=== PATIENT | female | born 1945 | race Caucasian/White ===

== ENCOUNTER 2017-02-08 15:37 | Emergency (ER) | payer MEDICARE, OTHER ==
[~2017-02-08] VITALS: Ht 165.1 cm; Wt 94.3 kg
[~2017-02-08 15:37] MED LIST: CITA40TA6 PO; FLUT16SP EA NOSTRIL; HYDR-4246 PO; LISI-621 PO; MELO-267 PO; ROPI2TAB6 PO; SULF1TAB42 PO; TRIA1TAB3 PO; VITA100049 PO
--- OUTSIDE RECORDS SUMMARY | 2017-02-08 15:43 | XMS REPORT ---
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 Active Assessment Encounter for screening for other disorder Z13.89 Active Assessment Encounter for screening for lipoid disorders Z13.220 Active Medications Medication Code System Code Instructions Start Date End Date Status Dosage Carvedilol [facility] [address]-59 25 MG Orally Twice a day Oct 20, 2015 1 tablet with food Citalopram Hydrobromide [facility] [address]-75 40 MG Orally Once a day Dec 01, 2015 1 tablet Ropinirole HCl [facility] [address]-81 2 MG Orally Once a day Oct 20, 2015 1 tablet 1 to 3 hours before bedtime Triamterene-HCTZ [facility] [address]-44 37.5-25 Orally Once a day TAKE ONE TABLET BY MOUTH DAILY Zetia [facility] [address]-11 10 MG Orally Once a day Nov 03, 2015 1 tablet Oxygen [facility] 0 Titrate inhaled overnight PRN Oct 20, 2015 as directed Fluticasone Propionate [facility] [address]-18 50 MCG/ACT Nasally Once a day Oct 20, 2015 1 spray in each nostril Lisinopril [facility] [address]-07 20 MG Orally Once a day Oct 20, 2015 1/ 2 tablet Procedures Procedure Coding System Code Date TSH CPT-4 23091 Jul 11, 2016 Results Name Result Date Reference Range Unit Abnormality Flag TSH ----TSH 3.34 [id number] 0.35-4.94 uIU/mL Summary Purpose eClinicalWorks Submission
--- OUTSIDE RECORDS SUMMARY | 2017-02-08 15:43 | XMS REPORT ---
Author Author Seble Johnson Organization [employer] Address Unknown Phone Unavailable Care Team Providers Care Cylinder Die Machine Operator Name Role Phone Seble Johnson CP Unavailable Allergies No Known Allergies Problems Problem Type Condition Code Onset Dates Condition Status Problem Unspecified essential hypertension 401.9 Active Medications Medication Code System Code Instructions Start Date End Date Status Dosage Zetia [facility] [address]-35 10 MG Orally Once a day Nov 03, 2015 1 tablet Results No Known Results Summary Purpose eClinicalWorks Submission
--- OUTSIDE RECORDS SUMMARY | 2017-02-08 15:43 | XMS REPORT ---
Author Author Seble Johnson [facility] Address [address] [place] [address] Care Team Providers Care Lasting Floorworker Name Role Phone Seble Johnson Unavailable [phone] PROBLEMS Type Condition ICD9-CM Code ZZW25-PW Code Onset Dates Condition Status SNOMED Code Problem Chronic obstructive pulmonary disease, unspecified COPD type J44.9 Active 98118242 Problem Other specified disorders of bone density and structure, unspecified site M85.80 Active Problem Hypoxemia R09.02 Active 105782533 Problem Unspecified essential hypertension 401.9 Active 50574107 Problem Nicotine dependence, cigarettes, uncomplicated F17.210 Active [id number] ALLERGIES Unknown Allergies SOCIAL HISTORY No smoking Hx information available PLAN OF CARE VITAL SIGNS MEDICATIONS Unknown Medications RESULTS No Results PROCEDURES No Known procedures IMMUNIZATIONS No Known Immunizations
--- OUTSIDE RECORDS SUMMARY | 2017-02-08 15:43 | XMS REPORT | Continuity of Care Document ---
Author Author [facility] Organization [facility] Address Unknown Phone Unavailable Support Name Relationship Address Phone GRANT WILKINS MD Caregiver [address] [place] [address] Unavailable TONNY GARCIA APRN Caregiver [address] [place] [address] Unavailable [place] Next Of Kin [address] [id number] Insurance Providers Guarantor Sabrina Durbin Address [address] [place] [id number] C Email DENIED/NO TO PT PORTAL Payer Medicare Policy Number [id number] Subscriber's Name Sabrina Durbin Relationship 18 Self Effective Date 10 Payer Other A Insurance Policy Number [id number] Subscriber's Name Sabrina Durbin Relationship 18 Self Group Number [id number] Problems Past Problems Medical Problem Onset Date Splinter of left foot with infection Unknown Medications Current Home Medications Medication Dose Units Route Directions Days Qty Instructions Start Date Amoxicillin/Potassium Clav (Augmentin 500-125 Tablet) 1 Each Tablet 1 Tab Oral Twice Daily With Meals 10 Tablet 05/18/16 Carvedilol 25 Mg Tablet 25 Mg Oral Daily 05/18/16 Citalopram Hydrobromide (Citalopram Hbr) 40 Mg Tablet 20 Mg Oral Daily 05/18/16 Fluticasone Propionate (Fluticasone Prop 50 Mcg/Actuation Nasal Tabiona) 120 Tabiona/16 G Tabiona 1 Tabiona Each Nostril Daily as needed for Prn Orders 05/18/16 Lisinopril 20 Mg Tablet 20 Mg Oral Daily 05/18/16 Meloxicam 15 Mg Tablet 15 Mg Oral Daily 05/18/16 Ropinirole Hcl 2 Mg Tablet 2 Mg Oral Daily 05/18/16 Rosuvastatin Calcium (Crestor) 5 Mg Tablet 5 Mg Oral Daily Tramadol Hcl 50 Mg Tablet 1-2 Tab Oral Q6h/0300,0900,1500,2100 as needed for Pain 20 Tablet 05/18/16 Triamterene/Hydrochlorothiazid (Triamterene-Hctz 37.5-25 Mg Tb) 1 Each Tablet 1 Tab Oral Daily 05/18/16 Vitamin E Mixed (Vitamin E) 1,000 Unit Capsule 1,000 Unit Oral Daily 05/18/16 Social History Social History Problem Response Recorded Date/Time Onset Date Status Hx Substance Use No 05/18/2016 10:50am Not Applicable Not Applicable Hx Alcohol Use No 05/18/2016 10:50am Not Applicable Not Applicable Has the pt used tobacco in the last 12 months Yes 05/19/2016 11:53am Not Applicable Not Applicable Tobacco Usage none 05/18/2016 11:30am Not Applicable Not Applicable Query Response Start Date Stop Date Smoking Status Current every day smoker Hospital Discharge Instructions No hospital discharge instructions. Plan of Care Prescriptions See Medication Section Functional Status No functional status results. Allergies, Adverse Reactions, Alerts No known allergies. Immunizations Immunization Event Date Type Not Given Reason Dose Number Lot Number Construction Project Assistant VIS Given Tdap 05/18/16 Administered 1 [id number] [facility] 01/13/15 Query Response on File Recorded Date/Time Hx Influenza Vaccination Y fall 201505/19/16 11:53am Hx Pneumococcal Vaccination No 05/19/16 11:53am Hx Influenza Vaccination Y fall 201505/19/16 11:53am Influenza Vaccine Hx CURRENT PER PT 05/18/16 10:50am Tdap Vaccine Hx 05/18/16 05/18/16 2:53pm Vital Signs Acute Vital Signs Vital Response Date/Time Temperature (Fahrenheit) 97.4 deg F (96.8 - 99.1) 05/19/2016 11:56am Temperature (Calculated Celsius) 36.42449 degrees C (36.0 - 37.3) 05/19/2016 11:56am Pulse Rate (adult) 72 bpm (60 - 100) 05/19/2016 11:56am Respiratory Rate 18 breaths/min (10 - 20) 05/19/2016 11:56am O2 Sat by Pulse Oximetry 93 % (90 - 100) 05/19/2016 11:56am Oxygen Delivery Method Room Air 05/19/2016 11:56am Blood Pressure 133/71 mm Hg 05/19/2016 11:56am Blood Pressure Source Automatic Cuff 05/19/2016 11:56am Blood Pressure 133/71 mm Hg 05/19/2016 11:56am Blood Pressure Source Automatic Cuff 05/19/2016 11:56am Height (Feet) 5 feet 05/19/2016 11:53am Height (Inches) 5.00 inches 05/19/2016 11:53am Weight (Kilograms) 85.500 kg 05/19/2016 11:53am Body Mass Index (BMI) 31.4 05/19/2016 11:53am Results Laboratory Results Test Name Result Units Flags Reference Collection Date/Time Result Date/ Time Comments White Blood Count 14.3 T/MM3 H 4.5-11.0 05/19/2016 11:49am 05/19/2016 12 :14pm Red Blood Count 4.76 M/MM3 4.00-5.20 05/19/2016 11:4905/19/2016 12: 14pm Hemoglobin 13.6 GM/DL 12-16 05/19/2016 11:49am 05/19/2016 12:14pm Hematocrit 41.6 % 36-46 05/19/2016 11:4905/19/2016 12:14pm Mean Corpuscular Volume 87.4 UM3 80-100 05/19/2016 11:4905/19/2016 12:14pm Mean Corpuscular Hemoglobin 28.6 UUG 26-34 05/19/2016 11:492015 12:14pm Mean Corpuscular Hemoglobin Concent 32.7 GM/DL 31-37 05/19/2016 11:4905/19/2016 12:14pm RDW Standard Deviation 43.5 FL 36.9-50.2 05/19/2016 11:4905/19/2016 12:14pm Platelet Count 234 T/MM3 130-400 05/19/2016 11:4905/19/2016 12:14pm Mean Platelet Volume 11.3 UM3 9.4-12.4 05/19/2016 11:4905/19/2016 12 :14pm Neutrophils % (Manual) 90.0 % H 33-66 05/19/2016 11:49am 05/19/2016 12: 20pm Band Neutrophils % 4.0 % 0-6 05/19/2016 11:4905/19/2016 12:20pm Lymphocytes % (Manual) 6.0 % L 23-45 05/19/2016 11:49am 05/19/2016 12: 20pm Band Neutrophils # 0.6 T/MM3 05/19/2016 11:4905/19/2016 12:20pm Absolute Neutrophils (Manual) 12.9 T/MM3 H 1.8-7.7 05/19/2016 11:49am 12:20pm Lymphocytes # (Manual) 0.9 T/MM3 L 1-4.8 05/19/2016 11:4905/19/2016 12:20pm Red Cell Morphology Comment NORMAL 05/19/2016 11:4905/19/2016 12 :30pm Icterus Index < 2 0-7 05/19/2016 11:4905/19/2016 12:24pm Chemistry Specimen Hemolysis 20 0-25 05/19/2016 11:4905/19/2016 12 :24pm 0-25: Specimen Exhibited No Hemolysis. Turbidity < 20 0-20 05/19/2016 11:4905/19/2016 12:24pm Sodium Level 136 MEQ/L 134-144 05/19/2016 11:4905/19/2016 12:24pm Potassium Level 3.5 MEQ/L L 3.6-5 05/19/2016 11:4905/19/2016 12:24pm Chloride Level 102 MEQ/L 98-107 05/19/2016 11:4905/19/2016 12:24pm Carbon Dioxide Level 23 MEQ/L 22-30 05/19/2016 11:4905/19/2016 12: 24pm Anion Gap 11 MEQ/L 5-15 05/19/2016 11:4905/19/2016 12:24pm Blood Urea Nitrogen 23.0 MG/DL H 7-17 05/19/2016 11:4905/19/2016 12: 24pm Creatinine 0.9 MG/DL 0.7-1.2 05/19/2016 11:4905/19/2016 12:24pm BUN/Creatinine Ratio 26 RATIO 6-26 05/19/2016 11:4905/19/2016 12: 24pm Glomerular Filtration Rate Calc 62 05/19/2016 11:4905/19/2016 12 :24pm Glucose Level 133 MG/DL H 65-110 05/19/2016 11:49am 05/19/2016 12:24pm Calculated Osmolality 268 MOSM/KG 261-280 05/19/2016 11:49am 2015 12:24pm Calcium Level 9.4 MG/DL 8.4-10.2 05/19/2016 11:49am 05/19/2016 12:24pm Total Bilirubin 1.00 MG/DL 0.20-1.30 05/19/2016 11:49am 05/19/2016 12: 24pm Alkaline Phosphatase 101 U/L 38-126 05/19/2016 11:49am 05/19/2016 12: 24pm Total Protein 7.4 G/DL 6.3-8.2 05/19/2016 11:49am 05/19/2016 12:24pm Albumin 3.9 G/DL 3.5-5.0 05/19/2016 11:49am 05/19/2016 12:24pm Globulin 3.5 G/DL 2.4-3.6 05/19/2016 11:49am 05/19/2016 12:24pm Albumin/Globulin Ratio 1.1 RATIO 1.1-2.2 05/19/2016 11:49am 05/19/2016 12:24pm Aspartate Amino Transf (AST/SGOT) 23 U/L 14-36 05/19/2016 11:49am 05/19 12:24pm Alanine Aminotransferase (ALT/SGPT) 19 U/L 9-52 05/19/2016 11:49am 12:24pm Microbiology Results Procedure Source Organism/Result Collection Date/Time Result Date/Time Result Status Blood Culture Peripheral/Iv Start CULTURE INITIATED - RESULTS PENDING 05/19 11:49am 05/19/2016 12:11pm Preliminary Procedures Procedure Status Date Provider(s) X-RAY EXAM OF FOOT Completed 05/18/16 US XTR NON-VASC LMTD Completed 05/18/16 IMMUNIZATION ADMIN Completed 05/18/16 TDAP VACCINE 7 YRS/> IM Completed 05/18/16 EMERGENCY DEPT VISIT Completed 05/18/16 Encounters Encounter Location Arrival/Admit Date Discharge/Depart Date Attending Provider Discharged Recurring [facility] 05/19/16 10:33am 05/19/16 5:52pm GRANT WILKINS MD Departed Emergency Room [facility] 05/18/16 10:46am 05/18/16 3: 10pm CHARLES MARR MD
--- OUTSIDE RECORDS SUMMARY | 2017-02-08 15:43 | XMS REPORT ---
Author Seble Ly [facility] eClinicalWorks Address Unknown Phone Unavailable Care Team Providers Care Oracle Application Architect Name Role Phone Seble Johnson CP Unavailable Allergies, Adverse Reactions, Alerts Substance Reaction Event Type Statins severe leg cramps Drug Allergy Problems Problem Type Condition Code Onset Dates Condition Status Assessment Hypoxemia R09.02 Active Assessment Nicotine dependence, cigarettes, uncomplicated F17.210 Active Problem Unspecified essential hypertension 401.9 Active Assessment Encounter for screening for other disorder Z13.89 Active Assessment Encounter for screening for lipoid disorders Z13.220 Active Assessment general medical exam Z00.00 Active Assessment Encounter for screening for malignant neoplasm of colon Z12.11 Active Medications Medication Code System Code Instructions Start Date End Date Status Dosage Fluticasone Propionate [facility] [address]-89 50 MCG/ACT Nasally Once a day Oct 20, 2015 1 spray in each nostril Lisinopril [facility] [address]-74 20 MG Orally Once a day Oct 20, 2015 1 tablet Triamterene-HCTZ [facility] [address]-87 37.5-25 MG Orally Once a day Sep 18, 2015 1 tablet in the morning Oxygen [facility] 0 Titrate inhaled overnight PRN Oct 20, 2015 as directed Ropinirole HCl [facility] [address]-36 2 MG Orally Once a day Oct 20, 2015 1 tablet 1 to 3 hours before bedtime Citalopram Hydrobromide [facility] [address]-74 40 MG Orally Once a day Oct 20, 2015 0.5 tablet Carvedilol [facility] [address]-59 25 MG Orally Twice a day Oct 20, 2015 1 tablet with food Meloxicam [facility] [address]-58 15 MG Orally Once a day Oct 20, 2015 April 17, 2016 1 tablet Procedures Procedure Coding System Code Date Preventive Care Est Pt. Age 65 and over CPT-4 28659 Oct 20, 2015 Vital Signs Date/Time: Oct 20, 2015 Height 66 in Weight 196.7 lbs Temperature 97.3 F Blood Pressure Diastolic 76 mm Hg Blood Pressure Systolic 118 mm Hg Cardiac Monitoring Heart Rate 60 /min BMI 31.74 Index Oximetry 90 % Respiratory Rate 20 /min Results No Known Results Summary Purpose eClinicalWorks Submission
--- OUTSIDE RECORDS SUMMARY | 2017-02-08 15:44 | XMS REPORT ---
Author Author Seble Johnson Organization [employer] Address Unknown Phone Unavailable Care Team Providers Care Sorting Cows Worker Name Role Phone Seble Johnson CP Unavailable Allergies No Known Allergies Problems Problem Type Condition Code Onset Dates Condition Status Assessment Encounter for screening for other disorder Z13.89 Active Problem Unspecified essential hypertension 401.9 Active Medications No Known Medications Results No Known Results Summary Purpose eClinicalWorks Submission
--- OUTSIDE RECORDS SUMMARY | 2017-02-08 15:44 | XMS REPORT ---
Author Danii Ordoñez [facility] eClinicalWorks Address Unknown Phone Unavailable Care Team Providers Care Sales Representative Name Role Phone Danii Zaman CP Unavailable Allergies No Known Allergies Problems Problem Type Condition Code Onset Dates Condition Status Problem Unspecified essential hypertension 401.9 Active Medications Medication Code System Code Instructions Start Date End Date Status Dosage Triamterene-HCTZ [facility] [address]-37 37.5-25 MG Orally Once a day Sep 18, 2015 1 tablet in the morning Results No Known Results Summary Purpose eClinicalWorks Submission
--- OUTSIDE RECORDS SUMMARY | 2017-02-08 15:44 | XMS REPORT | Continuity of Care Document ---
Author Author [facility] Organization [facility] Address Unknown Phone Unavailable Support Name Relationship Address Phone GRANT WILKINS MD Caregiver [address] [place] [address] Unavailable GRANT WILKINS MD Caregiver [address] [place] [address] Unavailable TONNY GARCIA APRN Caregiver [address] [place] [address] Unavailable LAWLERCLEM Next Of Kin [address] [place], [place] [id number] Insurance Providers Guarantor DurbinSabrina Address [address] [place] [address] C Email DENIED/NO TO PT PORTAL Payer Medicare Policy Number [id number] Subscriber's Name Sabrina Durbin Relationship 18 Self Effective Date 10 Payer Other A Insurance Policy Number [id number] Subscriber's Name Sabrina Durbin Relationship 18 Self Group Number PLANF Advance Directives Directive Response Recorded Date/Time Ordered Resuscitation Status Full Code 05/24/16 9:50am Resuscitation Documents on File No 05/24/16 9:56am DPOA for Healthcare Only No 05/24/16 9:56am Problems Active Problems Medical Problem Onset Date Status COPD (chronic obstructive pulmonary disease) Unknown Chronic Cellulitis and abscess of foot Unknown Acute Depression Unknown Chronic Hx of breast cancer Unknown Hypercholesterolemia Unknown Chronic Hypertension Unknown Chronic Tobacco dependence Unknown Chronic Past Problems Medical Problem Onset Date Splinter of left foot with infection Unknown Medications Current Home Medications Medication Dose Units Route Directions Days Qty Instructions Start Date Citalopram Hydrobromide (Citalopram Hbr) 40 Mg Tablet 20 Mg Oral Daily 05/18/16 Fluticasone Propionate (Fluticasone Prop 50 Mcg/Actuation Nasal [place]) 120 [place]/16 G [place] 1 [place] Each Nostril Daily as needed for Prn Orders 05/18/16 Hydrocodone/Acetaminophen (Cornish 5-325 Tablet) 5-325 Tablet 1-2 Tab Oral Every 6 Hours as needed for Pain 40 Tablet 05/27/16 Lisinopril 20 Mg Tablet 20 Mg Oral Daily 05/18/16 Meloxicam 15 Mg Tablet 15 Mg Oral Daily 05/18/16 Ropinirole Hcl 2 Mg Tablet 2 Mg Oral Daily 05/18/16 Sulfamethoxazole/Trimethoprim (Bactrim Ds Tablet) 1 Each Tablet 1 Tab Oral Twice A Day 14 Days 28 Tablet Take 1 tablet, by mouth, 2 times a day. Triamterene/Hydrochlorothiazid (Triamterene-Hctz 37.5-25 Mg Tb) 1 Each Tablet 1 Tab Oral Daily 05/18/16 Vitamin E Mixed (Vitamin E) 1,000 Unit Capsule 1,000 Unit Oral Daily 05/18/16 Past Home Medications Medication Directions Ordered Status Amoxicillin/Potassium Clav (Augmentin 500-125 Tablet) 1 Each Tablet, 1 Tab Oral Twice Daily With Meals 05/18/16 Discontinued Carvedilol 25 Mg Tablet, 25 Mg Oral Daily 05/18/16 Discontinued Tramadol Hcl 50 Mg Tablet, 1-2 Tab Oral Q6h/0300,0900,1500,2100 as needed for Pain 05/18/16 Discontinued Social History Social History Problem Response Recorded Date/Time Onset Date Status Hx Substance Use No 05/18/2016 10:50am Not Applicable Not Applicable Hx Alcohol Use No 05/25/2016 12:07pm Not Applicable Not Applicable Has the pt used tobacco in the last 12 months Yes 05/24/2016 9:58am Not Applicable Not Applicable Tobacco Usage smoke 05/24/2016 5:59pm Not Applicable Not Applicable Query Response Start Date Stop Date Smoking Status Current every day smoker Hospital Discharge Instructions No hospital discharge instructions. Plan of Care Discharge Date 05/27/16 2:20pm Disposition 01 DISCHARGED HOME, SELF-CARE Instructions/Education Provided Chronic Obstructive Pulmonary Disease Incision and Drainage of a Skin Abscess Prescriptions See Medication Section Additional Instructions/Education DRESSING CHANGES EVERY DAY WITH 1/4" PACKING TAPE AND KERLIX. WEIGHT BEARING TOLERATED ON YOUR L HEEL. Functional Status Query Response Date Recorded Mobility Status Ambulatory May 27, 2016 9:45am Assistive Devices None May 27, 2016 9:45am Activity Limitations None May 27, 2016 9:45am Feeding Ability Independent May 27, 2016 9:45am Toileting Ability Independent May 27, 2016 9:45am Grooming Ability Independent May 27, 2016 9:45am Dressing Ability Independent May 27, 2016 9:45am Driving Ability Independent May 27, 2016 9:45am Housework Ability Independent May 27, 2016 9:45am Meal Preparation Ability Independent May 27, 2016 9:45am Stair Climbing Ability Independent May 27, 2016 9:45am Ability to complete ADL's impeded by No change May 27, 2016 9:45am Cognitive/Perceptual Impairments Impaired vision May 27, 2016 9:45am Visual Assistive Devices Glasses With patient May 27, 2016 9:45am Preferred Method of Learning Listening May 27, 2016 9:45am Allergies, Adverse Reactions, Alerts No known allergies. Immunizations Immunization Event Date Type Not Given Reason Dose Number Lot Number Neonatal Social Worker VIS Given Tdap 05/18/16 Administered 1 [id number] [employer] 01/13/15 Query Response on File Recorded Date/Time Hx Influenza Vaccination Y fall 201505/24/16 9:58am Hx Pneumococcal Vaccination No 05/24/16 9:58am Hx Influenza Vaccination Y fall 201505/24/16 9:58am Influenza Vaccine Hx CURRENT PER PT 05/18/16 10:50am Tdap Vaccine Hx 05/18/16 05/18/16 2:53pm Vital Signs Acute Vital Signs Vital Response Date/Time Temperature (Fahrenheit) 96.1 deg F (96.8 - 99.1) 05/27/2016 12:28pm Temperature (Calculated Celsius) 35.31782 degrees C (36.0 - 37.3) 05/27/2016 12:28pm Temperature Source Axillary 05/25/2016 5:43pm Pulse Rate (adult) 51 bpm (60 - 100) 05/27/2016 12:28pm Respiratory Rate 12 breaths/min (10 - 20) 05/27/2016 12:28pm O2 Sat by Pulse Oximetry 96 % (90 - 100) 05/27/2016 12:28pm Oxygen Delivery Method Room Air 05/25/2016 5:43pm Oxygen Delivery Method Room Air 05/27/2016 12:28pm Oxygen Flow Rate 2.00 L/min 05/25/2016 1:40pm Blood Pressure 152/89 mm Hg 05/27/2016 12:28pm Blood Pressure Source Automatic Cuff 05/27/2016 12:28pm Height (Feet) 5 feet 05/26/2016 12:24pm Height (Inches) 5.00 inches 05/26/2016 12:24pm Weight (Kilograms) 85.700 kg 05/27/2016 7:29am Body Mass Index (BMI) 30.6 05/24/2016 9:53am Results Laboratory Results Test Name Result Units Flags Reference Collection Date/Time Result Date/ Time Comments Neutrophils % (Manual) 90.0 % H 33-66 05/19/2016 11:49am 05/19/2016 12: 20pm Band Neutrophils % 4.0 % 0-6 05/19/2016 11:49am 05/19/2016 12:20pm Lymphocytes % (Manual) 6.0 % L 23-45 05/19/2016 11:49am 05/19/2016 12: 20pm Band Neutrophils # 0.6 T/MM3 05/19/2016 11:49am 05/19/2016 12:20pm Absolute Neutrophils (Manual) 12.9 T/MM3 H 1.8-7.7 05/19/2016 11:49am 12:20pm Lymphocytes # (Manual) 0.9 T/MM3 L 1-4.8 05/19/2016 11:49am 05/19/2016 12:20pm Red Cell Morphology Comment NORMAL 05/19/2016 11:49am 05/19/2016 12 :30pm White Blood Count 8.5 T/MM3 4.5-11.0 05/26/2016 4:47am 05/26/2016 5: 15am Red Blood Count 4.63 M/MM3 4.00-5.20 05/26/2016 4:47am 05/26/2016 5: 15am Hemoglobin 13.0 GM/DL 12-16 05/26/2016 4:47am 05/26/2016 5:15am Hematocrit 40.4 % 36-46 05/26/2016 4:47am 05/26/2016 5:15am Mean Corpuscular Volume 87.3 UM3 80-100 05/26/2016 4:47am 05/26/2016 5: 15am Mean Corpuscular Hemoglobin 28.1 UUG 26-34 05/26/2016 4:47am 2015 5:15am Mean Corpuscular Hemoglobin Concent 32.2 GM/DL 31-37 05/26/2016 4:47am 05/26/2016 5:15am RDW Standard Deviation 41.9 FL 36.9-50.2 05/26/2016 4:47am 05/26/2016 5 :15am Platelet Count 295 T/MM3 130-400 05/26/2016 4:47am 05/26/2016 5:15am Mean Platelet Volume 10.4 UM3 9.4-12.4 05/26/2016 4:47am 05/26/2016 5: 15am Neutrophils (%) (Auto) 68.9 % H 33-66 05/26/2016 4:47am 05/26/2016 5: 15am Lymphocytes (%) (Auto) 18.0 % L 23-45 05/26/2016 4:47am 05/26/2016 5: 15am Monocytes (%) (Auto) 10.7 % H 0-9.0 05/26/2016 4:47am 05/26/2016 5:15am Eosinophils (%) (Auto) 2.0 % 0-4 05/26/2016 4:4705/26/2016 5:15am Basophils (%) (Auto) 0.2 % 0-2 05/26/2016 4:47am 05/26/2016 5:15am Immature Granulocyte % (Auto) 0.2 % 0.0-0.5 05/26/2016 4:472015 5:15am Absolute Neutrophils (auto) 5.9 T/MM3 1.8-7.7 05/26/2016 4:47am 2015 5:15am Absolute Lymphocytes (auto) 1.5 T/MM3 1-4.8 05/26/2016 4:47am 2015 5:15am Absolute Monocytes (auto) 0.9 T/MM3 H 0-0.8 05/26/2016 4:47am 2015 5:15am Absolute Eosinophils (auto) 0.2 T/MM3 0-0.5 05/26/2016 4:47am 2015 5:15am Absolute Basophils (auto) 0.0 T/MM3 0-0.2 05/26/2016 4:47am 05/26/2016 5:15am Absolute Immature Granulocyte (auto 0.02 T/MM3 0.00-0.03 05/26/2016 4: 47am 05/26/2016 5:15am Icterus Index < 2 0-7 05/26/2016 4:47am 05/26/2016 5:27am Chemistry Specimen Hemolysis < 15 0-25 05/26/2016 4:47am 05/26/2016 5 :27am 0-25: Specimen Exhibited No Hemolysis. Turbidity < 20 0-20 05/26/2016 4:47am 05/26/2016 5:27am Sodium Level 140 MEQ/L 134-144 05/26/2016 4:47am 05/26/2016 5:27am Potassium Level 3.9 MEQ/L 3.6-5 05/26/2016 4:47am 05/26/2016 5:27am Chloride Level 105 MEQ/L 98-107 05/26/2016 4:47am 05/26/2016 5:27am Carbon Dioxide Level 27 MEQ/L 22-30 05/26/2016 4:47am 05/26/2016 5: 27am Anion Gap 8 MEQ/L 5-15 05/26/2016 4:47am 05/26/2016 5:27am Blood Urea Nitrogen 17.0 MG/DL 7-17 05/26/2016 4:47am 05/26/2016 5: 27am Creatinine 0.8 MG/DL 0.7-1.2 05/26/2016 9:42am 05/26/2016 10:45am BUN/Creatinine Ratio 21 RATIO 6-26 05/26/2016 4:47am 05/26/2016 5:27am Glomerular Filtration Rate Calc 71 05/26/2016 9:42am 05/26/2016 10: 45am Glucose Level 89 MG/DL 65-110 05/26/2016 4:47am 05/26/2016 5:27am Calculated Osmolality 270 MOSM/KG 261-280 05/26/2016 4:47am 05/26/2016 5:27am Calcium Level 9.2 MG/DL 8.4-10.2 05/26/2016 4:47am 05/26/2016 5:27am Total Bilirubin 0.50 MG/DL 0.20-1.30 05/24/2016 11:00am 05/24/2016 11: 22am Alkaline Phosphatase 114 U/L 38-126 05/24/2016 11:00am 05/24/2016 11: 22am Total Protein 7.4 G/DL 6.3-8.2 05/24/2016 11:00am 05/24/2016 11:22am Albumin 3.8 G/DL 3.5-5.0 05/24/2016 11:00am 05/24/2016 11:22am Globulin 3.6 G/DL 2.4-3.6 05/24/2016 11:00am 05/24/2016 11:22am Albumin/Globulin Ratio 1.1 RATIO 1.1-2.2 05/24/2016 11:00am 05/24/2016 11:22am Aspartate Amino Transf (AST/SGOT) 22 U/L 14-36 05/24/2016 11:00am 05/24 11:22am Alanine Aminotransferase (ALT/SGPT) 18 U/L 9-52 05/24/2016 11:00am 03/2016 11:22am Vancomycin Level Trough 15.58 UG/ML 15-20 05/26/2016 9:42am 05/26/2016 10:19am Microbiology Results Procedure Source Organism/Result Collection Date/Time Result Date/Time Result Status Blood Culture Peripheral/Iv Start NO GROWTH AFTER 5 DAYS 05/19/2016 11: 49am 05/24/2016 12:10pm Final Surgical Culture Foot, Surgical Site, Left GRAM POSITIVE ORGANISM 2015 12:22pm 05/27/2016 7:39am Preliminary Name: SABRINA DURBIN Unit #: [id number] : 1945 Sex: F Admit Date: 05/24/16 Loc / Svc: MED Discharge Date: DIAGNOSTIC IMAGING REPORT Report #: [id number] [facility] [place] Indication: ITS.REASON: evaluate for foreign body and abscess PROCEDURE: CT LOWER EXTREMITY LT W CONT: Encounter: Initial Comparison: Left foot radiographs and ultrasound dated May 18, 2016 Technique: CT imaging of the left foot was performed after the administration of intravenous contrast. Coronal and sagittal two-dimensional reformats. Contrast: Omnipaque 300 74mL Findings: No acute fracture identified. Despite the patient's history I do not identify any definite residual foreign body within the plantar soft tissues of the foot. There is however a rim-enhancing fluid collection interposed between the fourth and fifth metatarsals extending to the superficial plantar soft tissues best seen on axial image #75 and sagittal image 20. This collection measures 2.7 x 1.2 x 3.6 cm in size. There is also significant dorsal soft tissue swelling and edema with thickening measuring up to 1.3 cm overlying the midfoot. Flexor and extensor tendons are grossly intact. Degenerative change in the midfoot at the tarsometatarsal joint between the second metatarsal base and middle cuneiform bone. Bony irregularity the medial malleolus could be due to old trauma. Impression: Abscess at the plantar aspect of the foot between the fourth and fifth metatarsals. Reactive edema and probable cellulitis also present. No definite retained foreign body seen. . Procedures Procedure Status Date Provider(s) X-RAY EXAM OF FOOT Completed 05/18/16 US XTR NON-VASC LMTD Completed 05/18/16 IMMUNIZATION ADMIN Completed 05/18/16 TDAP VACCINE 7 YRS/> IM Completed 05/18/16 EMERGENCY DEPT VISIT Completed 05/18/16 Incision and drainage of joint Completed 05/25/16 FRANK ZHAO MD Encounters Encounter Location Arrival/Admit Date Discharge/Depart Date Attending Provider Discharged Inpatient [facility] 05/24/16 9:24am 05/27/16 2:20pm GRANT WILKINS MD Registered Recurring [facility] 05/23/16 10:30am GRANT WILKINS MD Discharged Recurring [facility] 05/19/16 10:33am 05/19/16 5:52pm GRANT WILKINS MD Departed Emergency Room [facility] 05/18/16 10:46am 05/18/16 3: 10pm CHARLES MARR MD
--- OUTSIDE RECORDS SUMMARY | 2017-02-08 15:44 | XMS REPORT | Continuity of Care Document ---
Author Author [facility] Organization [facility] Address Unknown Phone Unavailable Support Name Relationship Address Phone CHARLES MARR MD Caregiver [address] [place] [address] [place] [address] Unavailable TONNY GARCIA APRN Caregiver [address] [place] [address] Unavailable CLEM LAWLER Next Of Kin [address] [place], [place] [id number] Insurance Providers Guarantor Sabrina Durbin Address [address] [place], [place] [address] C Email DENIED/NO TO PT PORTAL Payer Medicare Policy Number [id number] Subscriber's Name Sabrina Durbin Relationship 18 Self Effective Date 10 Payer Other A Insurance Policy Number [id number] Subscriber's Name Sabrina Durbin Relationship 18 Self Group Number PLANF Advance Directives Directive Response Recorded Date/Time Advanced Directives Type None 05/18/16 10:50am Chief Complaint and Reason for Visit Chief Complaint Lower Extremity Injury Reason for Visit Splinter of left foot with infection Problems Active Problems Medical Problem Onset Date Status Splinter of left foot with infection Unknown Acute Medications Current Home Medications Medication Dose Units Route Directions Days Qty Instructions Start Date Amoxicillin/Potassium Clav (Augmentin 500-125 Tablet) 1 Each Tablet 1 Tab Oral Twice Daily With Meals 10 Tablet 05/18/16 Carvedilol 25 Mg Tablet 25 Mg Oral Daily 05/18/16 Citalopram Hydrobromide (Citalopram Hbr) 40 Mg Tablet 20 Mg Oral Daily 05/18/16 Fluticasone Propionate (Fluticasone Prop 50 Mcg/Actuation Nasal [place]) 120 [place]/16 G [place] 1 [place] Each Nostril Daily as needed for Prn [...] Problem Response Recorded Date/Time Onset Date Status Chewing Tobacco Status No 05/18/2016 10:50am Not Applicable Not Applicable Hx Substance Use No 05/18/2016 10:50am Not Applicable Not Applicable Hx Alcohol Use No 05/18/2016 10:50am Not Applicable Not Applicable Tobacco Usage none 05/18/2016 11:30am Not Applicable Not Applicable Query Response Start Date Stop Date Smoking Status Current every day smoker Hospital Discharge Instructions No hospital discharge instructions. Plan of Care Discharge Date 05/18/16 3:10pm Disposition 01 DISCHARGED HOME, SELF-CARE Condition at Discharge Improved Prescriptions See Medication Section Referrals FRANK ZEPEDA MD Order Date: 1 Day Address: [facility] [place] [phone] Additional Instructions/Education Don't eat or drink anything after midnight. Call Dr. Zepeda's office this afternoon for further instructions about timing. Take antibiotics and pain medications as prescribed. Care Plan and Goals Physician Care Plan Problem: splinter, bottom of left foot Goal: Follow up with primary care provider Instructions: Take medications and follow care plan as discussed/written Functional Status No functional status results. Allergies, Adverse Reactions, Alerts No known allergies. Immunizations Immunization Event Date Type Not Given Reason Dose Number Lot Number Vice Chairman VIS Given Tdap 05/18/16 Administered 1 [id number] [employer] 01/13/15 Query Response on File Recorded Date/Time Influenza Vaccine Hx CURRENT PER PT 05/18/16 10:50am Tdap Vaccine Hx 05/18/16 05/18/16 2:53pm Vital Signs Acute Vital Signs Vital Response Date/Time Temperature (Fahrenheit) 98.1 deg F (96.8 - 99.1) 05/18/2016 3:10pm Temperature (Calculated Celsius) 36.49140 degrees C (36.0 - 37.3) 05/18/2016 3:10pm Pulse Rate (adult) 64 bpm (60 - 100) 05/18/2016 3:10pm Respiratory Rate 18 breaths/min (10 - 20) 05/18/2016 3:10pm O2 Sat by Pulse Oximetry 99 % (90 - 100) 05/18/2016 3:10pm Blood Pressure 145/81 mm Hg 05/18/2016 3:10pm Height (Feet) 5 feet 05/18/2016 10:50am Height (Inches) 5.00 inches 05/18/2016 10:50am Weight (Kilograms) 87.000 kg 05/18/2016 10:50am Body Mass Index (BMI) 31.0 05/18/2016 10:50am Results Name: SABRINA DURBIN Unit #: [id number] : 1945 Sex: F Admit Date: Loc / Svc: ED Discharge Date: DIAGNOSTIC IMAGING REPORT Report #: [id number] [facility] [place] Indication: ITS.REASON: splinter in lt foot PROCEDURE: US EXT.NONVASC LMTD. TISSUE LT: Encounter: Initial Comparison: Left foot radiographs from earlier today Technique: Grayscale imaging of the plantar aspect of the left foot in the area of puncture wound was performed. Findings: There are 4-5 echogenic linear foci in the superficial subcutaneous fat of the plantar left foot. These extend in a linear fashion posterior to the reported puncture wound along a total area of 2 cm in length. Each individual fragment is fairly small, the largest measures 1.5 mm in size while the others measure 1 mm in size or less. In the transverse plane there is a 4 mm echogenic structure seen 1 mm deep to the skin surface. This is asymmetric to the contralateral plantar right foot which was scanned for comparison. Impression: Small foreign bodies in the plantar left foot approximately 1 mm deep extending posterior to the puncture wound. . Procedures No known history of procedures. Encounters Encounter Location Arrival/Admit Date Discharge/Depart Date Attending Provider Registered Emergency Room [facility] 05/18/16 10:46am CHARLES MARR MD Recent Diagnosis
--- OUTSIDE RECORDS SUMMARY | 2017-02-08 15:44 | XMS REPORT ---
Author Author Danii Zaman Organization [employer] Address Unknown Phone Unavailable Care Team Providers Care Manager Editorial Name Role Phone Danii Zaman CP Unavailable Allergies, Adverse Reactions, Alerts Substance Reaction Event Type Statins severe leg cramps Drug Allergy Problems Problem Type Condition Code Onset Dates Condition Status Problem Unspecified essential hypertension 401.9 Active Assessment Essential (primary) hypertension I10 Active Problem Other specified disorders of bone density and structure, unspecified site M85.80 Active Assessment Other specified disorders of bone density and structure, unspecified site M85.80 Active Medications Medication Code System Code Instructions Start Date End Date Status Dosage Fluticasone Propionate [facility] [address]-02 50 MCG/ACT Nasally Once a day asneeded Oct 20, 2015 1 spray in each nostril Triamterene-HCTZ [facility] [address]-85 37.5-25 Orally Once a day take one tablet by mouth daily Citalopram Hydrobromide [facility] [address]-73 40 MG Orally Once a day Dec 01, [address] [facility] [address]-78 2 MG Orally Once a day Oct 20, 2015 1 tablet 1 to 3 hours before bedtime Oxygen NDC 0 Titrate inhaled overnight PRN Oct 20, [address] [facility] [address]-59 15 MG Orally Once a day Jul 07, [address] [facility] [address]-81 20 MG Orally Once a day Oct 20, 2015 1 tablet Procedures Procedure Coding System Code Date OFFICE VISIT, EST-LOW COMPLEXITY (15 MIN.) CPT-4 91206 Jul 12, 2016 [facility] visit Established Patient CPT-4 G0467 Jul 12, 2016 Vital Signs Date/Time: Jul 12, 2016 Temperature 97.6 F Height 66 in Weight 190 lbs Blood Pressure Diastolic 60 mm Hg Blood Pressure Systolic 106 mm Hg Cardiac Monitoring Heart Rate 75 /min BMI 30.66 Index Oximetry 95 % Respiratory Rate 16 /min Results No Known Results Summary Purpose [employer] Submission
--- OUTSIDE RECORDS SUMMARY | 2017-02-08 15:44 | XMS REPORT ---
Author Author Danii Zaman [facility] [employer] Address Unknown Phone Unavailable Care Team Providers Care Seed Potato Arranger Name Role Phone Danii Zaman CP Unavailable Allergies, Adverse Reactions, Alerts Substance Reaction Event Type Statins severe leg cramps Drug Allergy Problems Problem Type Condition Code Onset Dates Condition Status Assessment Dizziness and giddiness R42 Active Problem Unspecified essential hypertension 401.9 Active Medications Medication Code System Code Instructions Start Date End Date Status Dosage Ropinirole HCl [facility] [address]-74 2 MG Orally Once a day Oct 20, 2015 1 tablet 1 to 3 hours before bedtime Triamterene-HCTZ [facility] [address]-79 37.5-25 MG Orally Once a day Sep 18, 2015 1 tablet in the morning Zetia [facility] [address]-89 10 MG Orally Once a day Nov 03, 2015 1 tablet Carvedilol [facility] [address]-30 25 MG Orally Twice a day Oct 20, 2015 1 tablet with food Lisinopril [facility] [address]-22 20 MG Orally Once a day Oct 20, 2015 1 tablet Oxygen [facility] 0 Titrate inhaled overnight PRN Oct 20, 2015 as directed Citalopram Hydrobromide [facility] [address]-56 40 MG Orally Once a day Dec 01, 2015 1 tablet Meloxicam [facility] [address]-67 15 MG Orally Once a day Oct 20, 2015 April 17, 2016 1 tablet Fluticasone Propionate [facility] [address]-36 50 MCG/ACT Nasally Once a day Oct 20, 2015 1 spray in each nostril Procedures Procedure Coding System Code Date OFFICE VISIT, EST-LOW COMPLEXITY (15 MIN.) CPT-4 71810 Dec 01, 2015 [facility] visit Established Patient CPT-4 G0467 Dec 01, 2015 Vital Signs Date/Time: Dec 01, 2015 Height 66 in Weight 199 lbs Temperature 97.5 F Blood Pressure Diastolic 58 mm Hg Blood Pressure Systolic 110 mm Hg Cardiac Monitoring Heart Rate 64 /min BMI 32.12 Index Oximetry 94 % Respiratory Rate 14 /min Results No Known Results Summary Purpose [employer] Submission
--- OUTSIDE RECORDS SUMMARY | 2017-02-08 15:44 | XMS REPORT ---
Author Author Seble Johnson [facility] Address [address] [place] [address] Care Team Providers Care Order Make Up Clerk Name Role Phone Seble Johnson Unavailable [phone] PROBLEMS Type Condition ICD9-CM Code ANZ88-AT Code Onset Dates Condition Status SNOMED Code Problem Chronic obstructive pulmonary disease, unspecified COPD type J44.9 Active 69972979 Problem Other specified disorders of bone density and structure, unspecified site M85.80 Active Problem Hypoxemia R09.02 Active 733537755 Problem Unspecified essential hypertension 401.9 Active 79308558 Problem Nicotine dependence, cigarettes, uncomplicated F17.210 Active 599979045 ALLERGIES Unknown Allergies SOCIAL HISTORY No smoking Hx information available PLAN OF CARE VITAL SIGNS MEDICATIONS Unknown Medications RESULTS No Results PROCEDURES No Known procedures IMMUNIZATIONS No Known Immunizations
--- OUTSIDE RECORDS SUMMARY | 2017-02-08 15:44 | XMS REPORT ---
Author Author Dnaii Zaman Organization [employer] Address Unknown Phone Unavailable Care Team Providers Care Balance Recesser Name Role Phone Danii Zaman CP Unavailable Allergies No Known Allergies Problems Problem Type Condition Code Onset Dates Condition Status Assessment Encounter for screening for other disorder Z13.89 Active Problem Unspecified essential hypertension 401.9 Active Medications No Known Medications Results No Known Results Summary Purpose [employer] Submission
--- OUTSIDE RECORDS SUMMARY | 2017-02-08 15:44 | XMS REPORT | Continuity of Care Document ---
Author Author [facility] Organization [facility] Address Unknown Phone Unavailable Support Name Relationship Address Phone GRANT WILKINS MD Caregiver [address] [place] [address] Unavailable GRANT WILKINS MD Caregiver [address] [place] [address] Unavailable TONNY GARCIA APRN Caregiver [address] [place] [address] Unavailable LAWLERCLEM Next Of Kin [address] [place], [place] [id number] Insurance Providers Guarantor DurbinSabrina Address [address] [place] [address] C Email DENIED/NO TO PT PORTAL Payer Medicare Policy Number [id number] Subscriber's Name Sabrina Durbin Relationship 18 Self Effective Date 10 Payer Other A Insurance Policy Number [id number] Subscriber's Name Sabrina Durbin Relationship 18 Self [...] Fluticasone Propionate (Fluticasone Prop 50 Mcg/Actuation Nasal [place]) 120 [place]/16 G [place] 1 [place] Each Nostril Daily as needed for Prn Orders 05/18/16 Hydrocodone/Acetaminophen ([place] 5-325 Tablet) 5-325 Tablet 1-2 Tab Oral [...] Not Given Reason Dose Number Lot Number Casualty Insurance Claim Adjuster VIS Given Tdap 05/18/16 Administered 1 [id number] [employer] 01/13/15 Query Response on File Recorded Date/Time Hx Influenza Vaccination Y fall 201505/24/16 9:58am Hx Pneumococcal Vaccination No 05/24/16 9:58am Hx Influenza Vaccination Y fall 201505/24/16 9:58am Influenza Vaccine Hx CURRENT PER PT 05/18/16 10:50am Tdap Vaccine Hx 05/18/16 05/18/16 2:53pm Vital Signs Acute Vital Signs Vital Response Date/Time Temperature (Fahrenheit) 96.1 deg F (96.8 - 99.1) 05/27/2016 12:28pm Temperature (Calculated Celsius) 35.96666 degrees C (36.0 - 37.3) 05/27/2016 12:28pm [...] Final Surgical Culture Foot, Surgical Site, Left NON-HEMOLYTIC STREPTOCOCCUS 05/25 12:22pm 05/30/2016 2:12pm Final COAG NEGATIVE STAPHYLOCOCCUS 05/25/2016 12:22pm 05/30/2016 2:12pm Final Name: SABRINA DURBIN Unit #: [id number] : 1945 Sex: F DISCHARGE SUMMARY Admit Date: 05/24/16 Report #: [id number] [facility] General Date Date DATE: 05/27/16 TIME: 15:[address] Grant Wilkins Admitting Physician Dr. Grant Wilkins Consulting Physician Dr. Felipe Zepeda Admitting Diagnosis Left foot cellulitis Hypertension Depression Anxiety COPD Hypercholesterolemia Allergic rhinitis Discharge Diagnosis Left foot cellulitis and abscess Hypertension Depression Anxiety COPD Hypercholesterolemia Allergic rhinitis Procedures I&D left foot abscess (Dr. Zepeda, 05-25-16) Microbiology Microbiology Date/Time Source Procedure Growth Status 05/25/16 12:22 Foot, Surgical Site Left Gram Stain - Final Resulted 05/25/16 12:22 Surgical Culture - Preliminary Gram Positive Organism Resulted Radiology CT of foot showed abscess prior to procedure History of Present Illness Patient stepped on a toothpick in her home on 05-13-16. She dug out "most of it on her own." Her foot kept hurting and gradually worsened. She presented to the ED on 05-18-16. She was placed on augmentin and referred to my clinic for foreign body removal. An ultrasound done while in the ED showed several small pieces of the toothpick remaining in her plantar foot, about 1 mm deep. I saw patient in my clinic on 05-19-16 and removed the rest of the toothpick with ultrasound guidance and local anesthesia. Patient felt that all the toothpick was removed after the lidocaine wore off. However, patient had swelling and erythema of her foot. No systemic illness on 05-19-16. I ordered CBC, CMP and blood cultures and had her get 1 gram of rocephin IV daily as an outpatient. Initial CBC showed WBC of 14.3 with left shift and blood cultures have been negative (I will note these were drawn after two doses of augmentin.) I placed her in a cast shoe and she was going to use crutches for assistance with ambulation. I saw her in my clinic today for f/u. Patient still had redness and swelling and pain had worsened. She now complains of nausea, increased heartburn , fever and chills. I made a decision to admit her as an inpatient for IV antibiotics due to failed outpatient treatment. No history of cellulitis in the past. Patient does smoke 1 pack of cigarettes per day. Patient sees JACKIE at [facility] as her PCP. Hospital Course 05/24: Will admit patient for IV antibiotics after failed outpatient treatment. I did order a CT scan of the foot with and without IV contrast after admission and have reviewed this. Abscess is noted, but foreign body seems to have successfully been removed last week. Discussed with Dr. Zepeda and I will consult him. Will place patient on IV vancomycin. Lovenox for DVT prophylaxis. Protonix for GI prophylaxis. Will keep foot elevated in bed. May ambulate as tolerated, but will likely need assistance with walker. Patient states she does not need a nicotine patch and those have "made her sick in the past." Zofran prn nausea. Pharmacy to manage vancomycin dose, but I started at 1 g IV q 12 hours. Will follow CBC and WBC with serial lab monitoring. Blood cultures drawn on 05-19-16. Resume other home meds. Patient states she wasn't taking her zetia at home and wasn't taking her triamterene/hctz, so these weren't re-started but I will watch her blood pressure. Patient uses 2 L O2 at home during the night. She states she has chosen to not have formal testing for COPD. Will monitor as needed. 05/25: Patient having surgery this afternoon by Dr. Zepeda. Will follow post-op. Will monitor post-op gram stain. Has already been on antibiotics for 5 days. Will consult ID if we need assistance with decisions for post-op antibiotic course. Will check lab in the morning. Post-op orders and diet advancement per Dr. Zepeda. 05/26: Patient doing well overall. Wound packed by ortho s/p abscess drainage. Continue vancomycin. I do have a call out to Dr. Burch to see if she will be in the hospital the next couple of days to see the patient and recommend antibiotic course. Gram stain negative s/p surgery but this was done after augmentin, rocephin and vancomycin treatment. Blood cultures also negative but these were not drawn until after two doses of augmentin given by ED. Patient will need walker for discharge and home use. Anticipate discharge to home tomorrow. Ortho will re-pack wound tomorrow and likely f/u in clinic next week. 05/27: On date of discharge, patient doing very well. Normal physical exam, except for mild left foot swelling. Incision C/D/I. No erythema. No leg swelling. I did try to call our ID senior clinical consultant, but she was on vacation. Initial gram stain negative and blood cultures negative. Culture on date of discharge grew gram positive organism, but no further ID yet. Will place patient on bactrim BID x 14 days. [place] written for home use prn. Can bear weight on heel. She will use walker. FU with me in clinic next Monday. Call over the weekend with increased swelling, redness, fevers or other concerns. Resume normal home medications. Dr. Zepead will likely re-check patient at Monday f/u visit, as well. Will review final culture results then, but will watch for sensitivities and ID in the meantime and adjust abx if necessary. Problems: (1) Depression Status: Chronic (2) Cellulitis and abscess of foot Status: Acute (3) Hypertension Status: Chronic (4) Hypercholesterolemia Status: Chronic (5) COPD (chronic obstructive pulmonary disease) Status: Chronic (6) Tobacco dependence Status: Chronic DVT Prophylaxis: SCD'S Code Status Full Code Home Meds Active Scripts Sulfamethoxazole/Trimethoprim (Bactrim Ds Tablet) 1 Each Tablet, 1 TAB PO BID for 14 Days, #28 TAB 0 Refills Take 1 tablet, by mouth, 2 times a day. Prov:GRANT WILKINS MD 05/27/16 Hydrocodone/Acetaminophen ([place] 5-325 Tablet) 5-325 Tablet, 1-2 TAB PO Q6H Y for PAIN, #40 TAB 0 Refills Prov:GRANT WILKINS MD 05/27/16 Reported Medications Vitamin E Mixed (Vitamin E) 1,000 Unit Capsule, 1000 UNIT PO DAILY 05/18/16 Citalopram Hydrobromide (Citalopram HBr) 40 Mg Tablet, 20 MG PO DAILY 05/18/16 Ropinirole HCl (Ropinirole HCl) 2 Mg Tablet, 2 MG PO DAILY 05/18/16 Meloxicam (Meloxicam) 15 Mg Tablet, 15 MG PO DAILY 05/18/16 Fluticasone Propionate (Fluticasone Prop 50 mcg/actuation Nasal [place]) 120 [place] /16 G [place], 1 SPRAY EA NOSTRIL DAILY Y for PRN ORDERS 05/18/16 Triamterene/Hydrochlorothiazid (Triamterene-Hctz 37.5-25 mg Tb) 1 Each Tablet, 1 TAB PO DAILY 05/18/16 Lisinopril (Lisinopril) 20 Mg Tablet, 20 MG PO DAILY 05/18/16 Discontinued Reported Medications Carvedilol (Carvedilol) 25 Mg Tablet, 25 MG PO DAILY 05/18/16 Discontinued Scripts Tramadol HCl (Tramadol HCl) 50 Mg Tablet, 1-2 TAB PO Q6HR Y for PAIN, #20 TAB 0 Refills Prov:CHARLES MARR MD 05/18/16 Amoxicillin/Potassium Clav (Augmentin 500-125 Tablet) 1 Each Tablet, 1 TAB PO BIDWM, #10 TAB 0 Refills Prov:CHARLES MARR MD 05/18/16 Discharge Disposition to home Copies To 1: SUZIE ARANGO JENNIFER S MD May 27, 2016 15:59 Procedures Procedure Status Date Provider(s) X-RAY EXAM OF FOOT Completed 05/18/16 US XTR NON-VASC LMTD Completed 05/18/16 IMMUNIZATION ADMIN Completed 05/18/16 TDAP VACCINE 7 YRS/> IM Completed 05/18/16 EMERGENCY DEPT VISIT Completed 05/18/16 INSERT PICC CATH Completed 05/19/16 GRANT WILKINS MD COLLECT BLOOD FROM PICC Completed 05/19/16 GRANT WILKINS MD COMPREHEN METABOLIC PANEL Completed 05/19/16 BL SMEAR W/DIFF WBC COUNT Completed 05/19/16 COMPLETE CBC AUTOMATED Completed 05/19/16 BLOOD CULTURE FOR BACTERIA Completed 05/19/16 BLOOD CULTURE FOR BACTERIA Completed 05/19/16 THER/PROPH/DIAG IV INF INIT Completed 05/19/16 [id number]) Completed 05/19/16 535000"INJECTION, CEFTRIAXONE SODIUM, PER 250 MG" Completed 05/19/16 906114"INFUSION, NORMAL SALINE SOLUTION , 250 CC" Completed 05/19/16 DRAINAGE OF SKIN ABSCESS Completed 05/24/16 FRANK ZEPEDA MD DRAINAGE OF L FOOT SUBCU/FASCIA, OPEN APPROACH Completed 05/25/16 FRANK ZEPEDA MD, MICHELLE N Encounters Encounter Location Arrival/Admit Date Discharge/Depart Date Attending Provider Discharged Inpatient [facility] 05/24/16 9:24am 05/27/16 2:20pm GRANT WILKINS MD Discharged Recurring [facility] 05/23/16 10:30am 05/23/16 11: 40am GRANT WILKINS MD Discharged Recurring [facility] 05/19/16 10:33am 05/19/16 5:52pm GRANT WILKINS MD Departed Emergency Room [facility] 05/18/16 10:46am 05/18/16 3: 10pm CHARLES MARR MD
--- OUTSIDE RECORDS SUMMARY | 2017-02-08 15:44 | XMS REPORT ---
Author Author Seble Johnson [facility] Address Unknown Phone Unavailable Care Team Providers Care Pattern Checker Name Role Phone Seble Johnson CP Unavailable Allergies, Adverse Reactions, Alerts Substance Reaction Event Type Statins severe leg cramps Drug Allergy Problems Problem Type Condition Code Onset Dates Condition Status Problem Other specified disorders of bone density and structure, unspecified site M85.80 Active Problem Unspecified essential hypertension 401.9 Active Problem Chronic obstructive pulmonary disease, unspecified COPD type J44.9 Active Assessment Chronic obstructive pulmonary disease, unspecified COPD type J44.9 Active Problem Nicotine dependence, cigarettes, uncomplicated F17.210 Active Problem Hypoxemia R09.02 Active Medications Medication Code System Code Instructions Start Date End Date Status Dosage Fluticasone Propionate [facility] [address]-94 50 MCG/ACT Nasally Once a day asneeded Oct 20, 2015 1 spray in each nostril Citalopram Hydrobromide [facility] [address]-18 40 MG Orally Once a day Dec 01, 2015 1 tablet Ropinirole HCl [facility] [address]-16 2 MG Orally Once a day Oct 20, 2015 1 tablet 1 to 3 hours before bedtime Meloxicam [facility] [address]-63 15 MG Orally Once a day Jul 07, 2017 1 tablet Oxygen ND 0 Titrate inhaled overnight PRN Oct 20, 2015 as directed Lisinopril [facility] [address]-65 20 MG Orally Once a day Oct 20, 2015 1 tablet Triamterene-HCTZ [facility] [address]-64 37.5-25 Orally Once a day take one tablet by mouth daily Procedures Procedure Coding System Code Date OFFICE VISIT, EST-LOW COMPLEXITY (15 MIN.) CPT-4 83547 Sep 20, 2016 [facility] visit Established Patient CPT-4 G0467 Sep 20, 2016 Vital Signs Date/Time: Sep 20, 2016 Temperature 97.8 F Height 66 in Weight 192 lbs Blood Pressure Diastolic 80 mm Hg Blood Pressure Systolic 124 mm Hg Cardiac Monitoring Heart Rate 78 /min BMI 30.99 Index Oximetry 93 % Respiratory Rate 16 /min Results No Known Results Summary Purpose [employer]ClinicalWorks Submission
--- OUTSIDE RECORDS SUMMARY | 2017-02-08 15:44 | XMS REPORT ---
Author Author Danii Zaman Organization [employer] Address Unknown Phone Unavailable Care Team Providers Care Surveillance Sensor Operator Name Role Phone Danii Zaman CP Unavailable Allergies No Known Allergies Problems Problem Type Condition Code Onset Dates Condition Status Problem Unspecified essential hypertension 401.9 Active Medications No Known Medications Results No Known Results Summary Purpose [employer] Submission
--- OUTSIDE RECORDS SUMMARY | 2017-02-08 15:44 | XMS REPORT ---
Author Author Danii Zaman Organization [employer] Address Unknown Phone Unavailable Care Team Providers Care Church Official Name Role Phone Danii Zaman CP Unavailable Allergies No Known Allergies Problems Problem Type Condition Code Onset Dates Condition Status Problem Unspecified essential hypertension 401.9 Active Medications Medication Code System Code Instructions Start Date End Date Status Dosage [facility] [address]-33 5 MG Orally Once a day Oct 27, 2015 1 tablet Results No Known Results Summary Purpose [employer]ClinicalWorks Submission
--- OUTSIDE RECORDS SUMMARY | 2017-02-08 15:44 | XMS REPORT ---
Author Author Seble Johnson Organization [employer] Address Unknown Phone Unavailable Care Team Providers Care Esthetician Spa Name Role Phone Seble Johnson CP Unavailable Allergies No Known Allergies Problems Problem Type Condition Code Onset Dates Condition Status Assessment general medical exam Z00.00 Active Problem Unspecified essential hypertension 401.9 Active Medications Medication Code System Code Instructions Start Date End Date Status Dosage Lisinopril [facility] [address]-70 20 MG Orally Once a day Oct 20, 2015 1 tablet Triamterene-HCTZ [facility] [address]-65 37.5-25 MG Orally Once a day Sep 18, 2015 1 tablet in the morning Meloxicam [facility] [address]-73 15 MG Orally Once a day Oct 20, 2015 April 17, 2016 1 tablet Carvedilol [facility] [address]-42 25 MG Orally Twice a day Oct 20, 2015 1 tablet with food Fluticasone Propionate [facility] [address]-23 50 MCG/ACT Nasally Once a day Oct 20, 2015 1 spray in each nostril Oxygen ND 0 Titrate inhaled overnight PRN Oct 20, 2015 as directed Ropinirole HCl [facility] [address]-38 2 MG Orally Once a day Oct 20, 2015 1 tablet 1 to 3 hours before bedtime Citalopram Hydrobromide [facility] [address]-67 40 MG Orally Once a day Oct 20, 2015 0.5 tablet Procedures Procedure Coding System Code Date LIPID PANEL CPT-4 16262 Oct 26, 2015 Results No Known Results Summary Purpose eClinicalWorks Submission
[2017-02-08 15:48] VITALS: Ht 165.1 cm; Wt 94.3 kg
[2017-02-08] MEDS ORDERED: BISA-82 PO (16:31)
--- NOTE | 2017-02-08 16:34 | ERPDOC ---
Departure Disposition Decision Date: Feb 08, 2017 Disposition Decision Time: 17:45 Disposition: 01 DISCHARGED HOME, SELF-CARE Impression Impression Impression: Primary Impression: Low back pain Chronicity: chronic Back pain laterality: midline Sciatica presence: without sciatica Qualified Codes: G89.29 - Other chronic pain; M54.5 - Low back pain Severity: Mild Condition: Improved Seen By: Physician only Referrals: LUCERO BERG APRN (Family) 1 Day Patient Instructions: Acute Low Back Pain (ED), Lower Back Exercises (ED) Problems/Meds/Labs Reviewed?: Yes Medications reviewed and manag: Yes Follow up care ordered?: Yes Mental Status: Alert, Oriented Scripts Hydrocodone/Acetaminophen ([place] 5-325 Tablet) 5-325 Tablet 1 TAB PO Q4-6H for PAIN, #12 TAB 0 Refills Prov: MC HOBSON 02/08/17 HPI - Back Pain General Chief Complaint: Low Back Pain or Injury Stated Complaint: SEVERE BACK PAIN Time Seen by Provider: 16:18 Source: patient (Patient presents to the ER with exacerbation of her low back pain. Patient denies recent trauma) Exam Limitations: no limitations HPI - Back Pain Occurred At: home Onset/Timing: Changing over time Duration: other Pain/Severity Scale: Now & Worst: 5/10 Severity/Quality: moderate Location: lumbar spine, paraspinous muscles Radiation: other (no radiation) Method of Injury/Context: unknown Modifying Factors: IMPROVES WITH: pain medication, rest, WORSE WITH: movement Associated Sypmtoms: lower back pain, other (No saddle anesthesia), DENIES: fever, loss of bladder control, loss of bowel control, muscle spasms, numbness in legs/feet, sensory/motor loss, tingling in legs/feet, weakness Allergies: Coded Allergies: Zhtpbpn-Deq-Ooj Reductase Inhibitor (Verified Allergy, Unknown, 02/08/17) Past History Patient Surgical History mastectomy Past Medical History Metabolic: cancer, hypercholesterolemia, hypertension ENMT: allergies Respiratory: COPD Musculoskeletal: osteoarthritis Psychological: anxiety, depression Surgical History Denies Surgeries General: tonsils Reproductive/: hysterectomy, other Family History Family PMH: FOUND: CAD, hypertension Vaccines Hx Influenza Vaccination: Yes (FALL 2015) Hx Pneumococcal Vaccination: No Social History Smoking Status: Current every day smoker Does patient use chewing tobac: No # of Packs/Tins per Day: 1 # of Years: 55 Substance Use Type: does not use Alcohol Intake: none Housing: house Service: No Occupational Hazard: No Advance Directives: Yes Full Code Record Review Pertinent history updated: Yes Review of Systems Constitutional Constitutional: DENIES: chills, fever Eyes Lids/Accessories: DENIES: erythema, swelling ENMT Ears: DENIES: erythema, pain Balance: DENIES: ataxia, vertigo Sinuses: DENIES: congestion, rhinorrhea Mouth/Throat: DENIES: sore throat Cardiovascular Cardiac: DENIES: chest pain, dyspnea on exertion, orthopnea Rhythm/Rate: DENIES: tachycardia Pulmonary Respiratory: DENIES: cough, dyspnea, sputum GI Upper Abdomen: DENIES: nausea, pain, vomiting Lower Abdomen: DENIES: constipation, diarrhea, pain General: DENIES: dysuria Musculoskeletal General: DENIES: cramps, pain, weakness Integumentary Skin: DENIES: color change, itching, rash Neurological General: DENIES: ataxia, change in strength, headache, numbness, poor coordination, seizures, syncope, vertigo, weakness Psychiatric Psychiatric: DENIES: anxiety, depression, nervousness Hematologic/Lymphatic Hematologic/Lymphatic: DENIES: anemia Allergic/Immunological Allergic/Immunoligical: DENIES: sneezing All other Systems All Other Systems: Reviewed and Negative Physical Exam General General Nourishment: well nourished, well developed, appears stated age, adult General Body Habitus: well groomed Vitals and Pain First Documented Vital Signs Date Time Temp Pulse Resp B/P Pulse Ox O2 Delivery O2 Flow Rate FiO2 02/08/17 15:48 97.9 80 16 172/74 99 Room Air Weight: Kilograms: 94.300 Height (feet): 5 Height (inches): 5.00 Triage Pain Scale: Eyes (brief) Eyes Brief: found: EOMI, PERRL ENMT (brief) ENMT Brief: FOUND: TM clear, TM good light reflex, mucosa moist, NOT FOUND: pharnyx erythema Neck (brief) Neck: FOUND: trachea midline, NOT FOUND: adenopathy, nuchal rigidity, tenderness, tracheal deviation Respiratory (brief) Respiratory: FOUND: clear all zapata, equal bilaterally Cardiovascular (brief) Cardiac: FOUND: regular rate, regular rhythm Capillary Refill: <2 sec Pulses: all distal extremities, equal, strong Abdomen (brief) Abdominal Brief: FOUND: bowel normo active x4, soft, NOT FOUND: distended, hepatosplenomegaly, tender Lymphatic (brief) Lymphatic Brief: NOT FOUND: adenopathy Musculoskeletal (brief) Musculoskeletal Brief: NOT FOUND: spasm, tenderness Integumentary (brief) Integumentary Brief: FOUND: pink, warm Neurologic (brief) Neurological Brief: FOUND: CN w/o gross def to obs, DTR 2/4 all extremities, gait w/o gross def to obs, motor-no gross deficits, sensory-no gross deficits, NOT FOUND: ataxia Psychiatric (brief) Psychiatric Brief: FOUND: alert, attentive, normal affect, oriented Differential Diagnoses Considering: Aortic Dissection, Compression Fracture, Fracture, Lumbar Sprain, Lumbar Strain, Thoracic Sprain, Thoracic Strain, Other Progress Results/Orders Orders Procedure Category Date Status Time Ct Lumbar Spine W/O CT 02/08/17 Resulted Contrast Ketorolac (Toradol) PHA 02/08/17 Complete 16:45 Medications Current ED Medications Ketorolac Tromethamine (Toradol) 30 mg O ONCE IM Last administered on t 17:01; Start 02/08/17 at 16:45; Stop 02/08/17 at 16:46; Status DC Progress Progress Patient is refusing labs, will agree to imaging Patient is feeling better following medications CT showing Spondylosis with multi-level moderate central stenosis No Fractures or destructive Osseous lesions Patient is wanting to go home Will follow with her PCP, will return to the ER with worsening symptoms I discussed admission or Transfer for MRI, but the patient refused CT CT : Reason for Exam: Low Back Pain CT: Other (L-Spine without) Interpretation: Abnormal (Review written report), Reviewed Written Report MC HOBSON DO Feb 08, 2017 16:34 MC HOBSON DO Feb 08, 2017 16:34
[2017-02-08] MEDS ORDERED: KETOROLAC 30mg/ml INJECTION IM ONE (16:45)
--- NOTE | 2017-02-08 16:57 | NUR ---
RETURNED FROM [facility]
[2017-02-08] MEDS ORDERED: HYDR-4246 PO (17:47)
[2017-02-08 18:00] VITALS: BP 129/81; PULSE 70; RESP 16; TEMP 98.2; O2SAT 95
--- NOTE | 2017-02-08 18:00 | NUR ---
DISMISSAL IMPROVED. DISCHARGED AMB
--- NOTE | 2017-02-09 08:40 | DI ---
Indication: ITS.REASON: Back Pain PROCEDURE: CT LUMBAR SPINE W/O CONTRAST: Encounter: Initial Comparison: None Technique: Axial noncontrast CT imaging of the lumbar spine was performed with coronal and sagittal two-dimensional reformats. Automated Exposure Control and Iterative Reconstruction dose reducing techniques were utilized. FINDINGS: The alignment of the lumbar spine is normal for the patient's age. No fractures or traumatic subluxation of the lumbar spine is evident. There are moderate multilevel degenerative changes within the intervertebral disks and facet joints in the lower lumbar region. Multifocal central canal and neural foraminal stenosis. The paraspinal soft tissues and spinal canal are otherwise unremarkable in appearance. IMPRESSION: No evidence for acute osseous abnormality of the lumbar spine. There is a preliminary report by virtual radiologic. .
== END 2017-02-08 18:00 | disposition home or self-care (01) ==
LOC: ED 15:37
DX: M54.5 Low back pain (principal); G89.29 Other chronic pain
CPT/HCPCS: 72131; 96372; 99284; J1885

== ENCOUNTER → 2017-02-15 | Outpatient (CLI) | payer MEDICARE, OTHER ==
[~2017-02-15] MED LIST changes: +BISA-82 PO; -SULF1TAB42 PO
--- NOTE | 2017-02-15 15:33 | DI ---
Indication: ITS.REASON: M54.5 LOW BACK PAIN PROCEDURE: MRI LUMBAR SPINE W/O CONTRAST: Encounter: Initial Comparison: CT lumbar spine dated February 08, 2017 Technique: Multiplanar multisequence MR imaging of the lumbar spine was performed without contrast. Findings: Alignment of the lumbar spine is straightened with some loss of the normal lordosis. No acute fracture identified. Mildly heterogeneous bone marrow of uncertain etiology and clinical significance. The conus medullaris terminates normally at L1. The paraspinal soft tissues are grossly unremarkable. Segmental analysis: L1-L2: Broad-based disk bulge with degenerative facet disease contributing to mild central canal stenosis. Mild right and moderate left bony neural foraminal stenosis. L2-L3: Broad-based disk bulge with degenerative facet disease causing moderate to severe central canal stenosis. Moderate bilateral neural foraminal stenosis. L3-L4: Disk height loss with a broad-based bulge and degenerative facet change contributing to moderate central canal stenosis. Mild left neural foraminal stenosis. No significant right foraminal narrowing. L4-L5: Disk height loss with an annular disk protrusion and degenerative facet change causing mild central canal stenosis. Mild right and moderate left bony neural foraminal stenosis. L5-S1: Degenerative facet disease with a small disk osteophyte complex. No central canal stenosis. Moderate right and mild left neural foraminal stenosis. Impression: Degenerative disk and facet disease with areas of central canal and neural foraminal stenosis as above. .
== END ==
LOC: IMA 13:07
PROVIDERS: ATTEND Nurse Practitioner Family
DX: M48.06 Spinal stenosis, lumbar region (principal); M47.896 Other spondylosis, lumbar region; M47.897 Other spondylosis, lumbosacral region; M51.36 Other intervertebral disc degeneration, lumbar region; M51.37 Other intervertebral disc degeneration, lumbosacral region; M54.5 Low back pain